=== PATIENT | male | born 1975 | race Caucasian/White ===

== ENCOUNTER 2019-11-04 08:13 | Emergency (ER) | payer SELFPAY ==
--- NOTE | 2019-11-04 08:27 | EDM.PDOC ---
ED HPI GENERAL MEDICAL PROBLEM - General Chief Complaint: Chest Pain Stated Complaint: CHEST PAIN Time Seen by Provider: 11/04/19 08:25 - History of Present Illness INITIAL COMMENTS - FREE TEXT/NARRATIVE: 44-year-old male presents the emergency room with chest pain. This pain is been going on for about 5 days. He started out with a cough where he was trying to bring stuff up but really could not. He is not aware of any fevers or chills. The cough seems to be getting better but the pain is persistent. The pain is mostly right-sided. It is not worsened with exertion. Patient denies any loss of taste or smell. The patient does smoke but does not use any illicit drugs. History is positive for a father with a 5 vessel bypass at age 62. Right Chest Pain Score (Numeric/FACES): 7 - Related Data Allergies Allergy/AdvReac Type Severity Reaction Status Date / Time No Known Allergies Allergy Verified 11/04/19 08:23 Home Meds: Home Meds Pseudoephedrine HCl [Sudafed 12 Hour] 120 mg PO Q12H PRN 11/04/19 [History] Past Medical History Other HEENT History: wears eyeglasses ED ROS GENERAL - Review of Systems Review Of Systems: See Below Constitutional: Reports: No Symptoms. Denies: Fever, Chills HEENT: Reports: Rhinitis Respiratory: Reports: Cough (This makes the pain a lot worse however it is getting better) Cardiovascular: Reports: Chest Pain. Denies: Dyspnea on Exertion, Edema, Syncope Endocrine: Reports: No Symptoms GI/Abdominal: Reports: No Symptoms : Reports: No Symptoms Musculoskeletal: Reports: No Symptoms Skin: Reports: No Symptoms Neurological: Reports: No Symptoms Psychiatric: Reports: No Symptoms ED EXAM, GENERAL - Physical Exam Exam: See Below Exam Limited By: No Limitations General Appearance: Alert, No Apparent Distress Ears: Normal External Exam, Normal Canal, Hearing Grossly Normal, Normal TMs Nose: Normal Inspection, Normal Mucosa, No Blood Throat/Mouth: Normal Inspection, Normal Lips, Normal Teeth, Normal Gums, Normal Oropharynx, Normal Voice, No Airway Compromise Head: Atraumatic, Normocephalic Neck: Normal Inspection, Supple, Non-Tender, Full Range of Motion Respiratory/Chest: No Respiratory Distress, Lungs Clear, Normal Breath Sounds Cardiovascular: Regular Rate, Rhythm, No Edema, No Murmur EKG INTERPRETATION EKG Date: 11/04/19 Rhythm: NSR [place]: Normal P-Wave: Present QRS: Normal ST-T: Other (Early repolarization inferior) Comparison: NA - No Prior EKG EKG Interpretation Comments: Borderline Course - Vital Signs Last Recorded V/S: Last Vital Signs Temp 36.1 C 11/04/19 08:20 Pulse 70 11/04/19 11:45 Resp 16 11/04/19 11:45 BP 126/80 11/04/19 11:45 Pulse Ox 97 11/04/19 11:45 - Orders/Labs/Meds Orders: Active Orders 24 hr Category Date Time Status CORONAVIRUS COVID-19 PCR [facility] Stat Lab 11/04/19 11:40 Received Labs: Laboratory Tests 11/04/19 11/04/19 11/04/19 Range/Units 08:50 08:50 08:50 WBC 10.18 H (4.23-9.07) K/mm3 RBC 4.88 (4.63-6.08) M/mm3 Hgb 15.2 D (13.7-17.5) gm/dl Hct 43.5 (40.1-51.0) % MCV 89.1 (79.0-92.2) fl MCH 31.1 (25.7-32.2) pg MCHC 34.9 (32.2-35.5) g/dl RDW Std Deviation 39.3 (35.1-43.9) fL Plt Count 163 (163-337) K/mm3 MPV 10.3 (9.4-12.3) fl Neut % (Auto) 67.4 (34.0-67.9) % Lymph % (Auto) 21.4 L (21.8-53.1) % Cook % (Auto) 7.9 (5.3-12.2) % Eos % (Auto) 2.1 (0.8-7.0) Baso % (Auto) 0.6 (0.1-1.2) % Neut # (Auto) 6.87 H (1.78-5.38) K/mm3 Lymph # (Auto) 2.18 (1.32-3.57) K/mm3 Cook # (Auto) 0.80 (0.30-0.82) K/mm3 Eos # (Auto) 0.21 (0.04-0.54) K/mm3 Baso # (Auto) 0.06 (0.01-0.08) K/mm3 PT 10.0 (9.7-12.0) SECONDS INR 0.93 APTT 26 (22-31) SECONDS D-Dimer, Quantitative < 0.19 L (0.19-0.50) mg/L Sodium (136-145) mEq/L Potassium (3.5-5.1) mEq/L Chloride (98-107) mEq/L Carbon Dioxide (21-32) mEq/L Anion Gap (5-15) BUN (7-18) mg/dL Creatinine (0.7-1.3) mg/dL Est Cr Clr Drug Dosing mL/min Estimated GFR (MDRD) (>60) mL/min BUN/Creatinine Ratio (14-18) Glucose (74-106) mg/dL Calcium (8.5-10.1) mg/dL Ferritin 337 (26-388) ng/ml Total Bilirubin (0.2-1.0) mg/dL AST (15-37) U/L ALT (16-63) U/L Alkaline Phosphatase (46-116) U/L Troponin I (0.00-0.056) ng/mL C-Reactive Protein (<1.0) mg/dL Total Protein (6.4-8.2) g/dl Albumin (3.4-5.0) g/dl Globulin gm/dL Albumin/Globulin Ratio (1-2) 11/04/19 11/04/19 Range/Units 08:50 08:50 WBC (4.23-9.07) K/mm3 RBC (4.63-6.08) M/mm3 Hgb (13.7-17.5) gm/dl Hct (40.1-51.0) % MCV (79.0-92.2) fl MCH (25.7-32.2) pg MCHC (32.2-35.5) g/dl RDW Std Deviation (35.1-43.9) fL Plt Count (163-337) K/mm3 MPV (9.4-12.3) fl Neut % (Auto) (34.0-67.9) % Lymph % (Auto) (21.8-53.1) % Cook % (Auto) (5.3-12.2) % Eos % (Auto) (0.8-7.0) Baso % (Auto) (0.1-1.2) % Neut # (Auto) (1.78-5.38) K/mm3 Lymph # (Auto) (1.32-3.57) K/mm3 Cook # (Auto) (0.30-0.82) K/mm3 Eos # (Auto) (0.04-0.54) K/mm3 Baso # (Auto) (0.01-0.08) K/mm3 PT (9.7-12.0) SECONDS INR APTT (22-31) SECONDS D-Dimer, Quantitative (0.19-0.50) mg/L Sodium 137 (136-145) mEq/L Potassium 4.1 (3.5-5.1) mEq/L Chloride 102 (98-107) mEq/L Carbon Dioxide 24 (21-32) mEq/L Anion Gap 15.1 H (5-15) BUN 20 H (7-18) mg/dL Creatinine 1.0 (0.7-1.3) mg/dL Est Cr Clr Drug Dosing 118.80 mL/min Estimated GFR (MDRD) > 60 (>60) mL/min BUN/Creatinine Ratio 20.0 H (14-18) Glucose 117 H (74-106) mg/dL Calcium 9.0 (8.5-10.1) mg/dL Ferritin (26-388) ng/ml Total Bilirubin 0.6 (0.2-1.0) mg/dL AST 21 (15-37) U/L ALT 67 H (16-63) U/L Alkaline Phosphatase 70 (46-116) U/L Troponin I < 0.017 (0.00-0.056) ng/mL C-Reactive Protein 3.4 H* (<1.0) mg/dL Total Protein 7.5 (6.4-8.2) g/dl Albumin 3.8 (3.4-5.0) g/dl Globulin 3.7 gm/dL Albumin/Globulin Ratio 1.0 (1-2) Meds: Medications Discontinued Medications Generic Name Dose Route Start Last Admin Trade Name Freq PRN Reason Stop Dose Admin Aspirin 324 mg 11/04/19 09:00 11/04/19 08:53 Aspirin PO 324 mg DAILY MANUEL Administration Morphine Sulfate 4 mg 11/04/19 08:49 11/04/19 08:54 Morphine IM 11/04/19 08:50 4 mg ONETIME ONE Administration - Re-Assessments/Exams Free Text/Narrative Re-Assessment/Exam: 11/04/19 11:12 The patient's work-up is nondiagnostic. Troponin is negative C-reactive protein is elevated and his ferritin is at the upper end of normal but still normal. We discussed the possibility of COVID and I am getting a test through the health department on him. I did explain to the patient that a negative test does not exclude COVID. And it would not be unreasonable for him to take precautions and isolate himself. Departure - Departure Time of Disposition: 11:17 Disposition: Home, Self-Care 01 Clinical Impression: Pleuritic chest pain - Discharge Information Instructions: Nonspecific Chest Pain, Adult, [id number] Referrals: PCP,None [Primary Care Provider] - Forms: ED Department Discharge Additional Instructions: Return to the emergency room with any questions problems or worsening symptoms. Tylenol or Motrin as needed for discomfort. Follow-up in the hospital clinic the middle of this next week for recheck. Clinic number is [phone] call today to schedule an appointment. You have been tested for COVID. Stay in home isolation until the test results come back but as we discussed the negative test does not exclude the possibility of COVID as there is a high percentage of false negatives with the test. Sepsis Event Note (ED) - Focused Exam Vital Signs: Vital Signs Temp Pulse Resp BP Pulse Ox 11/04/19 11:45 70 16 126/80 97 11/04/19 08:20 36.1 C 80 12 150/89 H 100 - My Orders Last 24 Hours: My Active Orders 11/04/19 11:40 CORONAVIRUS COVID-19 PCR [facility] Stat - Assessment/Plan Last 24 Hours: My Active Orders 11/04/19 11:40 CORONAVIRUS COVID-19 PCR [facility] Stat
[2019-11-04] MEDS ORDERED: Morphine 4 MG/ML Syringe IM ONE (08:49)
[2019-11-04] MEDS ORDERED: Aspirin 81 MG Tab.Chew PO SCH (09:00)
--- NOTE | 2019-11-04 09:57 | CR ---
Chest: Portable view of the chest was obtained. Comparison: Prior chest x-ray of 05/27/14. Heart size and mediastinum are normal. Lungs are clear with no acute parenchymal change. Bony structures are grossly intact. Impression: 1. Nothing acute is appreciated on portable chest x-ray. Diagnostic code #1 This report was dictated in MDT
[2019-11-04 11:46] VITALS: BP 126/80; PULSE 70
== END 2019-11-04 11:46 | disposition home or self-care (01) ==
LOC: JD.ED 08:13
DX: R07.81 Pleurodynia (principal); Z20.828 Contact with and (suspected) exposure to other viral communicable diseases
CPT/HCPCS: 36415; 71045; 80053; 82728; 84484; 85025; 85379; 85610; 85730; 86140; 87635; 96372; 99284; A9270; J2270; 93010; U0002

== ENCOUNTER 2019-12-31 07:57 | Emergency (ER) | payer SELFPAY ==
[2019-12-31 08:12] VITALS: PULSE 99
[2019-12-31 08:18] VITALS: BP 155/97
[2019-12-31] MEDS ORDERED: Amoxicillin/Clavulanate K 875-125 MG Tab PO ONE (08:32)
[2019-12-31] MEDS ORDERED: Ketorolac 10 MG Tab PO ONE (08:33)
--- NOTE | 2019-12-31 08:37 | EDM.PDOC ---
ED HPI GENERAL MEDICAL PROBLEM - General Chief Complaint: ENT Problem Stated Complaint: DENTAL COMPLAINT Time Seen by Provider: 12/31/19 08:30 Source of Information: Reports: Patient History Limitations: Reports: No Limitations - History of Present Illness INITIAL COMMENTS - FREE TEXT/NARRATIVE: 44-year-old male presents to the ED complaining of severe pain from a left lower molar tooth. 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 Has been clean for couple of years but relapsed recently. Pain is been gradually worsening in the left lower molar tooth over the last week and draining salty-like substance. Pain is constant and throbbing. Slept very poorly last night due to pain. He has been taking Tylenol Motrin at home. Onset: Gradual Onset Date: 12/24/19 Duration: Day(s):, Getting Worse Location: Reports: Face (Dental pain involving left lower) Quality: Reports: Ache, Throbbing ( molar tooth.), Other Severity: Moderate Improves with: Reports: None Worsens with: Reports: None Context: Reports: Other (Ending. A 10-30 is badly decayed.). Denies: Activity, Exercise, Lifting, Sick Contact, Trauma Associated Symptoms: Reports: No Other Symptoms, Loss of Appetite. 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 Respiratory History: Reports: Other (See Below) Other Respiratory History: beginning of COPD Endocrine/Metabolic History: Reports: Other (See Below) Other Endocrine/Metabolic History: borderline diabetic - Infectious Disease History Infectious Disease History: Reports: Chicken Pox - Past Surgical History HEENT Surgical History: Reports: Tonsillectomy GI Surgical History: Reports: Cholecystectomy Social & Family History - Tobacco Use Smoking Status *Q: Current Every Day Smoker Years of Tobacco use: 30 Packs/Tins Daily: 1 - Caffeine Use Caffeine Use: Reports: Coffee - Alcohol Use Days Per Week of Alcohol Use: 7 Number of Drinks Per Day: 0 Total Drinks Per Week: 0 - Recreational Drug Use Recreational Drug Use: Yes Drug Use in Last 12 Months: Yes Recreational Drug Type: Reports: Methamphetamine Recreational Drug Use Frequency: Daily - Living Situation & Occupation Living situation: Reports: Single Occupation: Employed (Part-time employed.) ED ROS ENT - Review of Systems Review Of Systems: See Below Constitutional: Reports: Malaise, Weakness, Fatigue, Decreased Appetite (From not sleeping.). Denies: Fever, Chills HEENT: Reports: Dental Pain (Left lower molar tooth.), Glasses Respiratory: Reports: Shortness of Breath, Cough. Denies: Wheezing, Pleuritic Chest Pain Cardiovascular: Reports: Blood Pressure Problem. Denies: Chest Pain (Smoker's cough.), Claudication, Dyspnea on Exertion, Edema, Lightheadedness, Orthopnea Endocrine: Reports: Fatigue GI/Abdominal: Reports: Decreased Appetite Musculoskeletal: Reports: Joint Pain (Knees hips low back at times.) Skin: Reports: No Symptoms Neurological: Reports: No Symptoms Psychiatric: Reports: No Symptoms Hematologic/Lymphatic: Reports: No Symptoms Immunologic: Reports: No Symptoms ED EXAM, ENT - Physical Exam Exam: See Below Exam Limited By: No Limitations General Appearance: Alert, WD/WN, No Apparent Distress, Other (Patient advised he needs follow-up in this regard BP is elevated at 149 113.) Eye Exam: Bilateral Eye: Normal Inspection, PERRL Ears: Normal TMs Mouth/Throat: Other (Patient has a badly decayed left lower second molar tooth. The third and first molar teeth on the left lower mandible are missing. Second molar has approximately 30% decay on the buccal surface. The surrounding gingiva is markedly swollen without any obvious abscess that would benefit from drainage. Mild cervical lymphadenopathy on the left side.) Head: Atraumatic, Normocephalic Neck: Normal Inspection, Supple, Non-Tender, Full Range of Motion. No: Lymphadenopathy (L), Lymphadenopathy (R) Respiratory/Chest: No Respiratory Distress, Lungs Clear, Normal Breath Sounds, No Accessory Muscle Use Course - Vital Signs Last Recorded V/S: Last Vital Signs Temp 36.2 C 12/31/19 08:08 Pulse 99 12/31/19 08:08 Resp 18 12/31/19 08:08 BP 155/97 H 12/31/19 08:17 Pulse Ox 98 12/31/19 08:08 - Orders/Labs/Meds Meds: Medications Discontinued Medications Generic Name Dose Route Start Last Admin Trade Name Emeterio PRN Reason Stop Dose Admin Amoxicillin/Clavulanate Potassium 1 tab 12/31/19 08:32 Augmentin 875 Mg/125 Mg PO 12/31/19 08:33 ONETIME ONE Ketorolac Tromethamine 10 mg 12/31/19 08:33 Toradol PO 12/31/19 08:34 ONETIME ONE - Radiology Interpretation Free Text/Narrative:: 44-year-old male presents to the ED with dental pain coming from left lower second molar tooth which is showing significant decay on the buccal surface. Approximately 30% of the tooth is eroded away from dental caries. The surrounding gingiva is markedly swollen without any pointing abscess that would benefit from draining. Patient was given Augmentin 8 7 5 mg / 125 mg tablet through the ED now and Toradol 10 mg p.o. for pain relief. Prescription written for doxycycline 100 mg twice daily for the next 10 days as he does not have any money for medication. Naprosyn naproxen 500 mg extended release once a 6 to 8 hours as needed for pain relief. Departure - Departure Time of Disposition: 08:33 Disposition: Home, Self-Care 01 Condition: Fair Clinical Impression: Dental abscess - Discharge Information *PRESCRIPTION DRUG MONITORING PROGRAM REVIEWED*: Not Applicable *COPY OF PRESCRIPTION DRUG MONITORING REPORT IN PATIENT GOVIND: Not Applicable Prescriptions: Naproxen Sodium [Naproxen Sodium ER] 500 mg PO Q6H #18 tablet.er Doxycycline [Vibra-Tabs] 100 mg PO Q12HR #20 tab Instructions: Dental Abscess, [id number] Referrals: PCP,None [Primary Care Provider] - Forms: ED Department Discharge Additional Instructions: Evaluation in the emergency room today in regards to pain due to a badly decayed left lower second molar tooth. Approximately 30% of the tooth is missing due to decay. The surrounding gingiva is markedly swollen indicating infection. Treatment is to take antibiotic doxycycline 100 mg twice daily for the next 10 days. First tablet could be taken this morning when you purchase your presc ription. First tablet of antibiotic was given in the ED at this morning. You did receive Toradol 10 mg tablet in the ER for relief of pain. Prescription written for naproxen 500 mg extended release tablet 1 every 6-8 hours as necessary for pain relief until the antibiotics become effective. Of course follow-up with dentist when able. Sepsis Event Note (ED) - Evaluation Sepsis Screening Result: No Definite Risk - Focused Exam Vital Signs: Vital Signs Temp Pulse Resp BP Pulse Ox 12/31/19 08:17 155/97 H 12/31/19 08:08 36.2 C 99 18 149/113 H 98
== END 2019-12-31 09:10 | disposition home or self-care (01) ==
LOC: JD.ED 07:57
DX: K04.7 Periapical abscess without sinus (principal); K02.9 Dental caries, unspecified; F17.210 Nicotine dependence, cigarettes, uncomplicated
CPT/HCPCS: 99282; A9270; 99283

== ENCOUNTER 2020-01-01 07:12 | Emergency (ER) | payer SELFPAY ==
[2020-01-01 07:36] VITALS: BP 151/101; PULSE 108
--- NOTE | 2020-01-01 08:09 | EDM.PDOC ---
ED HPI GENERAL MEDICAL PROBLEM - General Chief Complaint: ENT Problem Stated Complaint: DENTAL COMPLAINT Time Seen by Provider: 01/01/20 07:34 Source of Information: Reports: Patient, Old Records (ED 12/31/2019) History Limitations: Reports: No Limitations - History of Present Illness INITIAL COMMENTS - FREE TEXT/NARRATIVE: Mr. Ceja is a very pleasant 44-year-old gentleman who, medical records indicate, was seen in this ED yesterday, 12/31/2019 with a complaint at that time of lower left constant/throbbing dental pain for about 1 week. He complained of a oral drainage, but no fever. He has a history of both binge alcoholism and methamphetamine abuse, and acknowledged that he relapsed with both about 1 month ago. On examination, he was found to have significant decay to the buccal aspect of his left lower second molar. He was treated with oral Toradol and Augmentin, then discharged home with a prescription for doxycycline 100 mg po BID x 10 days and naproxen 500 mg, 1 tablet po Q 6 to 8 hrs, #18. The patient now returns the ED stating that he is concerned that the dental infection has spread into his neck. He believes that his neck is swollen, and he has difficulty swallowing. Still no fever. He states that he has been taking the doxycycline as prescribed. Here in the ED, the patient's initial BP is found to be modestly elevated at 151/101 with a tachycardia of 108 bpm. He is afebrile, saturating 97% on room air. The patient states that he drinks 3-4 tall beers per night, with occasional hard alcohol - "whatever I can get my hands on". He states that he will typically drink for 3 to 4 months, then remain sober for about a year. He has currently been drinking for about 1 month. He also reports snorting methamphetamine for the past month, with his most recent ingestion this past 12/30/2019. Other than his dental symptoms, the patient denies having a recent fever, chills, sore throat, ear pain, nasal or sinus congestion, cough, dyspnea, chest pain, palpitations, nausea, vomiting, constipation, diarrhea, abdominal pain, urinary symptoms, recent weight gain or weight loss, recent bloody bowel movements or black bowel movements, recent joint aches, headaches, or rashes. The patient does not have a PCP. Left Lower Oral/Mouth Pain Score (Numeric/FACES): 8 - Related Data Allergies Allergy/AdvReac Type Severity Reaction Status Date / Time No Known Allergies Allergy Verified 01/01/20 07:33 Home Meds: Home Meds Doxycycline [Vibra-Tabs] 100 mg PO Q12HR #20 tab 12/31/19 [Rx] Naproxen Sodium [Naproxen Sodium ER] 500 mg PO Q6H #18 tablet.er 12/31/19 [Rx] Past Medical History HEENT History: Reports: Impaired Vision (wears glasses) Psychiatric History: Reports: Addiction (alcohol, methamphetamine) Endocrine/Metabolic History: Reports: Obesity/BMI 30+, Other (See Below) (Prediabetes) - Infectious Disease History Infectious Disease History: Reports: Chicken Pox - Past Surgical History HEENT Surgical History: Reports: Oral Surgery (dental extractions), Tonsillectomy GI Surgical History: Reports: Cholecystectomy (2000 or 2001) Social & Family History - Tobacco Use Smoking Status *Q: Current Every Day Smoker Years of Tobacco use: 33 Packs/Tins Daily: 1 - Caffeine Use Caffeine Use: Reports: Coffee - Alcohol Use Alcohol Use History: Yes Alcohol Use Frequency: Binges (see HPI) - Recreational Drug Use Recreational Drug Use: Yes Drug Use in Last 12 Months: Yes Recreational Drug Type: Reports: Marijuana/Hashish (last smoked Nov 2019), Methamphetamine (snorts near-daily) - Living Situation & Occupation Living situation: Reports: Single, Other (with a friend) Occupation: Unemployed ED ROS ENT - Review of Systems Review Of Systems: Comprehensive ROS is negative, except as noted in HPI. ED EXAM, ENT - Physical Exam Exam: See Below Exam Limited By: No Limitations General Appearance: Alert, WD/WN, No Apparent Distress Eye Exam: Bilateral Eye: EOMI, Normal Inspection Ears: Normal External Exam, Normal Canal, Hearing Grossly Normal, Normal TMs Nose: Normal Inspection, Normal Mucousa, No Blood Mouth/Throat: Normal Lips, Normal Oropharynx, Other (Teeth #1, 2 absent. Tooth #3 with an amalgam filling. Tooth #5 absent. Tooth #10 absent. Teeth #12, 13 with amalgam fillings. Teeth #16, 17 absent. Tooth #18 (the tooth of concern) with significant decay to the buccal surface and significant surrounding gingival swelling. Tooth #19 absent. Tooth #21 absent. Tooth #24 absent. Tooth #32 absent.) Head: Atraumatic, Normocephalic Neck: Supple, Full Range of Motion, Lymphadenopathy (L) (mild), Tender Lateral (left), Other (No left facial or neck erythema). No: Lymphadenopathy (R) Respiratory/Chest: No Respiratory Distress, Lungs Clear, Normal Breath Sounds, No Accessory Muscle Use Cardiovascular: Normal Peripheral Pulses, Regular Rate, Rhythm, No Edema, No Gallop, No JVD, No Murmur, No Rub GI/Abdominal: Normal Bowel Sounds, Soft, Non-Tender, No Organomegaly, No Distention, No Abnormal Bruit, No Mass Back: Normal Inspection, Full Range of Motion Extremities: Normal Inspection, Normal Range of Motion, No Pedal Edema, Normal Capillary Refill Neurological: Alert, Oriented, Normal Cognition, No Motor/Sensory Deficits Psychiatric: Normal Affect Skin: Warm, Dry, Intact, Normal Color, No Rash Course - Vital Signs Last Recorded V/S: Last Vital Signs Temp 35.8 C L 01/01/20 07:34 Pulse 108 H 01/01/20 07:34 Resp 16 01/01/20 07:34 BP 151/101 H 01/01/20 07:34 Pulse Ox 97 01/01/20 07:34 - Orders/Labs/Meds Orders: Active Orders 24 hr Category Date Time Status Soft Tissue Neck w Cont [CT] Stat Exams 01/01/20 08:02 Taken Meds: Medications Discontinued Medications Generic Name Dose Route Start Last Admin Trade Name Freq PRN Reason Stop Dose Admin Hydromorphone HCl 1 mg 01/01/20 09:09 01/01/20 09:21 Dilaudid IVPUSH 01/01/20 09:10 1 mg ONETIME ONE Administration Sodium Chloride 1,000 mls @ 150 mls/hr 01/01/20 08:15 01/01/20 08:41 Normal Saline IV 150 mls/hr ASDIRECTED MANUEL Administration Influenza Virus Vaccine 1 each 01/01/20 08:03 Pharmacy To Dose - Influenza Vaccine IM 01/01/20 08:04 ONETIME ONE Influenza Virus Vaccine 60 mcg 01/01/20 08:15 01/01/20 08:41 Fluzone Quad [id number] Syringe IM 01/01/20 08:16 60 mcg .ONCE ONE Administration Iopamidol 80 ml 01/01/20 09:15 Isovue-300 (61%) IVPUSH 01/01/20 09:16 ONETIME ONE - Re-Assessments/Exams Free Text/Narrative Re-Assessment/Exam: 01/01/20 08:04 As above, the patient was seen in this ED yesterday for a left second molar pain that has been progressively worsening over the past week. He was found to have significant decay with gingival swelling, but nothing pointing. He was treated with Toradol and Augmentin, then discharged home with a prescription for doxycycline 100 mg BID x 10 days and naproxen 500 mg every 6-8 hours. He now returns to the ED stating that he filled his prescriptions and has been taking them as prescribed, but that his pain has gotten worse, that he is having difficulty swallowing. No recent fever. On examination, the patient has significant decay noted to the buccal aspect of tooth #18, with significant swelling of the surrounding gingiva, but, like yesterday, no pointing. He has mild left submandibular lymphadenopathy and left neck swelling without erythema. I doubt that he has a significant neck infection, but since that is the concern that the patient has, I have ordered a CT of the soft tissue of the neck with IV contrast to evaluate. The patient will be given IV fluid. 01/01/20 10:04 CT of the soft tissue of the neck with IV contrast is read by Belén as: Negative for acute disease or suspicious finding including such as abscess or neck mass. There is no evident Theresa nodule infection but the left upper neck lymph nodes are asymmetrically enlarged, likely reactive and suspicious for oral or dental disease not detectable with CT. 01/01/20 10:41 Test results discussed with the patient. I am recommending that he continue the doxycycline and naproxen that was prescribed to him yesterday, and, most importantly, that he follow-up with a dentist as soon as possible. The patient expressed understanding. Departure - Departure Time of Disposition: 10:42 Disposition: Home, Self-Care 01 Condition: Good Clinical Impression: Dental infection - Discharge Information *PRESCRIPTION DRUG MONITORING PROGRAM REVIEWED*: Not Applicable *COPY OF PRESCRIPTION DRUG MONITORING REPORT IN PATIENT GOVIND: Not Applicable Instructions: Dental Abscess, [id number] Referrals: PCP,None [Primary Care Provider] - Forms: ED Department Discharge Additional Instructions: You were seen in the emergency room for continued pain due to a lower left dental infection. Work-up in the ER included a CT of the soft tissue of your neck, which confirmed that you have a dental infection, but found no evidence of extension of that infection. We recommend that you continue to take the doxycycline, 1 tablet twice a day, and naproxen, 1 tablet every 6-8 hours, as prescribed yesterday. As discussed, it is imperative that you follow-up with a dentist at the next available appointment. If any other problems, please do not hesitate to return to the ER. Sepsis Event Note (ED) - Evaluation Sepsis Screening Result: No Definite Risk - Focused Exam Vital Signs: Vital Signs Temp Pulse Resp BP Pulse Ox 01/01/20 07:34 35.8 C L 108 H 16 151/101 H 97 - My Orders Last 24 Hours: My Active Orders 01/01/20 08:02 Soft Tissue Neck w Cont [CT] Stat - Assessment/Plan Last 24 Hours: My Active Orders 01/01/20 08:02 Soft Tissue Neck w Cont [CT] Stat
[2020-01-01] MEDS ORDERED: Sodium Chloride 0.9% 1,000 ML IV SCH (08:15)
[2020-01-01] MEDS ORDERED: FLU VACC QS2020-21(6MOS UP)/PF 60 MCG/0.5 ML SYRINGE IM ONE (08:15)
[2020-01-01] MEDS ORDERED: HYDROmorphone 1 MG/ML Syringe IVPUSH ONE (09:09)
[2020-01-01] MEDS ORDERED: Iopamidol 612 MG/ML 100 ML Bottle IVPUSH ONE (09:15)
== END 2020-01-01 10:50 | disposition home or self-care (01) ==
LOC: JD.ED 07:12
DX: K04.7 Periapical abscess without sinus (principal); K02.9 Dental caries, unspecified; F17.210 Nicotine dependence, cigarettes, uncomplicated; E66.9 Obesity, unspecified; Z68.32 Body mass index [BMI] 32.0-32.9, adult; Z23 Encounter for immunization
CPT/HCPCS: 70491; 90471; 90686; 96374; 99283; J1170; J7030; G0008